=== PATIENT | female | born 1960 | race Caucasian/White ===

== ENCOUNTER → 2016-11-22 | Outpatient (CLI) | payer BC, OTHER ==
[~2016-11-22] VITALS: Ht 165.1 cm; Wt 99.8 kg
[~2016-11-22] MED LIST: AMBIEN 5 MG TABL5 M1 PO; ASPIR 8181 M1 PO; BYSTOLIC 5 MG5 M1 PO; CLARITIN10 M2 PO; COLACE100 MG PO; CRESTOR10 MG PO; FLONASE 0.05%50 MCG NASAL; IBUPROFEN 200200 M1 PO; LUNESTA1 MG PO; NEXIUM40 MG PO; TURMERIC500 M1 PO
--- NOTE | ~2016-11-22 | CATHLAB ---
[facility] [address] [place] [address] INVASIVE PROCEDURE REPORT Name: CRISTIAN ROSANAKIA JEFFERY Room #: REG Felix#: [id number] Admission: 11/22/16 Attend Phys: Nito Andrews Discharge: Date of : 62 Date of Service: 11/22/16 1301 Report #: [id number] THIS REPORT FOR: //name// APPROVED REPORT Patient Location: Room #: Stress Nurse: SVT PROCEDURE PROCEDURES PERFORMED 1. EP STUDY 2. SVT ABLATION 3. 3D MAPPING History: The patient is a 56-year-old female with a long-standing history of supraventricular tachycardia who has failed medical therapy. She has documented adenosine sensitive SVT that has been terminated several times at prior ER visits. Informed consent: The patient underwent informed consent were we discussed the details of the procedure including the need for possible transseptal access. We also discussed the risks which include but are not limited to bleeding vascular damage cardiac perforation stroke, MD or damage to the chemehuevi conduction system requiring permanent pacemaker. She understood these risks and was willing to proceed. Anesthesia: The patient was sedated by the anesthesiology service with no anesthesia related complications. Procedure: The patient was prepped and draped in a sterile fashion. I then injected lidocaine to the bilateral groin regions. I obtained access to the bilateral femoral veins and placed sheaths using the modified Salinger technique. In the right femoral vein I placed an 8 Mozambican and 6 Mozambican short sheath. In the left femoral [facility] [address] [place] [address] INVASIVE PROCEDURE REPORT Name: CRISTIAN ROSANAKIA LATIA Room #: REG CL [facility]#: [id number] Admission: 11/22/16 Attend Phys: Nito Andrews Discharge: Date of : 62 Date of Service: 11/22/16 1301 Report #: [id number] vein and placed a 6 Mozambican and locking 7 Mozambican short sheath. Next under fluoroscopy I placed 3 quadripolar catheters into the HRA HIS and RV positions. A decapolar catheter was placed into the coronary sinus. With catheter manipulation in the atria, the patient would go into supraventricular tachycardia. A basic EP study was then performed. Baseline findings: At baseline, the patient was in sinus rhythm with a sinus cycle length of 702 ms SD interval 135 ms QRS duration 78 ms QT interval 394 ms AH interval 63 ms and an HV interval of 31 ms. Next, atrial burst pacing was performed and SVT was induced quickly. The tachycardia cycle length was 420 ms with a septal VA time of 30 ms. Ventricular entrainment was performed which demonstrated a VA HV response consistent with typical AV baljeet reentrant tachycardia. Atrial ERP was noted at 240 ms at a [address] cycle length. Ventricular pacing was performed and VA block was less than 300 ms. With ventricular burst pacing the patient went atrial fibrillation which lasted about 30 seconds and then she converted on her own. With single ventricular extrastimuli there was evidence of both midline and decremental VA conduction Ventricular extrastimuli also induced AVNRT. Again this was easily entrained and was consistent with typical AV baljeet reentrant tachycardia. In fact, it was difficult to terminate her tachycardia once it was initiated. 3-D mapping and SVT ablation: Next, I removed the HRA catheter and short sheath and exchanged this for a Biosense Toribio 4 mm ablation catheter and a SR 0 sheath. Next I created a detailed 3-D geometry with specific emphasis of the His bundle coronary sinus ostium and slow pathway region. Of note, the patient had a very small triangle of Velez. The slow pathway was approximately 15 mm from the most inferior aspect of the His bundle cloud. Next ablation was performed at 50 W 55 in the area of the slow pathway. I performed a total of 11 ablation lesions. The first 8 lesions had what appeared to be nice slow pathway potentials, but there were no junctional beats. The last ablation lesions were slightly higher and again had nice electrograms and at this site we had nice slow junctional as and a few runs of AVNRT. Post-ablation testing [facility] [address] [place] [address] INVASIVE PROCEDURE REPORT Name: FOSTER NAKIA ROSA Room #: REG CL [facility]#: [id number] Admission: 11/22/16 Attend Phys: Nito Andrews Discharge: Date of : 62 Date of Service: 11/22/16 1301 Report #: [id number] was then performed. Post-ablation testing: Post-ablation EP study was then performed. AV block was noted at 350 ms. Atrial ERP was noted at 260 ms at a [address] cycle length. There were rare single AV baljeet echoes but nothing more than this. VA block was noted at 300 ms and ventricular ERP was noted at 230 ms at a [address] cycle length. We performed ventricular pacing for a period of 30 minutes and no further SVT could be induced. As such, the procedure was concluded. All catheters and sheaths were pulled and hemostasis was obtained. There were no complications and no significant bleeding. The patient awoke neurologically and hemodynamically intact. Conclusion Conclusion: 1. 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 2. Normal SA baljeet function 3. Normal AV baljeet function. 4. Normal His-Purkinje function. 5. Induction of atrial fibrillation with aggressive pacing likely a nonspecific finding. <ELECTRONICALLY SIGNED> By: Nito Andrews MD 11/22/16 1301 1301 1301 Nito Andrews MD /INF
[2016-11-22 07:10] VITALS: BP 120/64
[2016-11-22 07:18] LABS: HEMATOCRIT 37.4 % (37.0-47.0); HEMOGLOBIN 13.1 gm/dL (12.0-15.0); MCH 31.6 pg (26.0-34.0); MCHC 34.9 g/dL (28.0-37.0); MCV 90.6 fL (80.0-100.0); PLATELET COUNT 193 thou/uL (150-400); RBC 4.13 mil/uL (4.20-5.00); RDW 12.6 % (10.5-14.5); WBC 2.5 thou/uL (4.0-11.0)
[2016-11-22 07:20] LABS: MANUAL DIFF YES
[2016-11-22 07:28] LABS: CALCIUM 9.3 mg/dL (8.5-10.1); POTASSIUM 4.2 mmol/L (3.5-5.1)
[2016-11-22 07:33] LABS: ALBUMIN 3.8 g/dL (3.4-5.0); TOTAL BILIRUBIN 0.6 mg/dL (<0.1-1.0); TOTAL PROTEIN 7.5 g/dL (6.4-8.2)
[2016-11-22 07:38] LABS: APTT 25.2 Seconds (24.5-32.8); PROTIME 10.2 Seconds (9.3-11.4)
[2016-11-22 08:42] LABS: ABSOLUTE NEUTROPHILS 0.8 thou/uL (1.4-8.2); TOTAL CELL COUNT 100
[2016-11-22 08:43] LABS: ANISOCYTOSIS SLIGHT
== END | disposition home or self-care (01) ==
LOC: CATH 06:33
PROVIDERS: Internal Medicine Cardiovascular Disease
DX: I47.1 Supraventricular tachycardia (principal); Z90.49 Acquired absence of other specified parts of digestive tract; Z98.890 Other specified postprocedural states; K21.9 Gastro-esophageal reflux disease without esophagitis; E78.5 Hyperlipidemia, unspecified; E66.9 Obesity, unspecified
CPT/HCPCS: 62110; 62900; 70005